=== PATIENT | male | born 1995 | race African-American/Black ===

== ENCOUNTER 2019-12-10 09:44 | Emergency (ER) | payer OTHER ==
[~2019-12-10] VITALS: Ht 170.2 cm; Wt 69.4 kg
[2019-12-10 09:45] VITALS: BP 117/76
--- NOTE | 2019-12-10 10:35 | REPVR ---
PROCEDURE INFORMATION: Exam: XR Right Elbow Exam date and time: 12/10/2019 10:14 AM Age: 24 years old Clinical indication: Injury or trauma; Injury history: PT states that he hyperextended his elbow yesterday; Initial encounter; Sprain or strain; Right; Additional info: Pain, trauma TECHNIQUE: Imaging protocol: XR Right elbow. Views: 3 or more views. COMPARISON: No relevant prior studies available. FINDINGS: Bones/joints: No acute fracture or dislocation is identified. Soft tissues: The fat pads are not significantly displaced. There is mild soft tissue swelling posteriorly. IMPRESSION: Mild posterior soft tissue swelling without evidence for acute fracture or dislocation. Electronically signed by: [email or web address] Hernadez On 12/10/2019 10:34:36 AM
== END 2019-12-10 10:54 | disposition home or self-care (01) ==
LOC: M ED 09:44
DX: S53.401A Unspecified sprain of right elbow, initial encounter (principal); Y92.9 Unspecified place or not applicable; Y93.9 Activity, unspecified; Y99.9 Unspecified external cause status; F17.200 Nicotine dependence, unspecified, uncomplicated; Z91.010 Allergy to peanuts